=== PATIENT | male | born 1940 | race Caucasian/White ===

== ENCOUNTER → 2023-06-25 11:42 | Outpatient (REF) | payer MEDICARE, BC, SELFPAY | LOC: DHCBC/DCA 11:42 | PROVIDERS: ATTENDING PHYSICIAN Nurse Practitioner; FAMILY PHYSICIAN Family Medicine | DX: R06.09 Other forms of dyspnea (principal) | CPT/HCPCS: 78452; 93017; A9500; J2785 ==

== ENCOUNTER → 2023-08-18 13:02 | Outpatient (REF) | payer MEDICARE, BC, SELFPAY ==
[2023-08-18 13:51] LABS: % Basophils 1.9 % (0-2); % Eosinophils 9.3 % (0-6); % Immature Granulocytes 0.6 % (0-0.5); % Lymphocytes 23.5 % (20.5-51.1); % Monocytes 11.7 % (1.7-9.3); Absolute Basophils 0.1 10^3/uL (0-0.2); Absolute Eosinophils 0.5 10^3/uL (0-0.7); Absolute Lymphocytes 1.2 10^3/uL (1.2-3.4); Absolute Monocytes 0.6 10^3/uL (0.1-0.6); Absolute Neutrophils 2.7 10^3/uL (1.4-6.5); Hematocrit 37.7 % (39.0-52.0); Hemoglobin 12.7 g/dL (13.0-18.0); Mean Corp Hgb Conc. 33.7 g/dL (33.0-37.0); Mean Corpuscular Hgb 30.2 pg (27.0-31.0); Mean Corpuscular Volume 89.8 fL (80.0-94.0); Mean Platelet Volume 9.5 fL (7.4-10.4); Nucleated Red Blood Cells % 0 % (-); Platelet Count 203 10^3/uL (130-400); Red Cell Dist. Width 14.8 % (11.5-14.5); White Blood Cell Count 5.2 10^3/uL (4.8-10.8)
[2023-08-18 14:58] LABS: ALT (SGPT) 29 U/L (0-50); AST (SGOT) 33 U/L (17-59); Albumin 4.4 g/dl (3.5-5.0); Alkaline Phosphatase 92 U/L (38-126); Blood Urea Nitrogen 33 mg/dl (9-20); Calcium 10.5 mg/dl (8.4-10.2); Carbon Dioxide 25 mmol/L (22-30); Chloride 106 mmol/L (98-107); Glucose 90 mg/dl (70-99); Potassium 4.4 mmol/L (3.5-5.1); Sodium 137 mmol/L (135-145); Total Bilirubin 0.9 mg/dl (0.2-1.3); eGFR > 60.00
== END ==
LOC: SDSPAT 13:02
PROVIDERS: ATTENDING PHYSICIAN Internal Medicine Cardiovascular Disease; FAMILY PHYSICIAN Family Medicine
DX: Z01.818 Encounter for other preprocedural examination (principal); I48.0 Paroxysmal atrial fibrillation; R06.09 Other forms of dyspnea; I10 Essential (primary) hypertension
CPT/HCPCS: 36415; 80053; 85025; 86850; 86900; 86901

== ENCOUNTER 2023-08-30 05:51 | Day surgery (SDC) | payer MEDICARE, BC, SELFPAY ==
[2023-08-19 12:56] VITALS: BMI 38.2
[2023-08-30] VITALS (11 sets, daily range): BP systolic 96–153; BP diastolic 70–101; BMI 38.2
[2023-08-30] MEDS: NSS 500 IV (06:42)
[2023-08-30 09:03] LABS: ACT-LR - POC 335 Seconds (116-155)
[2023-08-30 09:24] LABS: ACT-LR - POC 361 Seconds (116-155)
[2023-08-30 09:53] LABS: ACT-LR - POC 316 Seconds (116-155)
--- NOTE | 2023-08-30 10:26 | ITS.CL.ABL ---
Song Writer - Ablation
Ablation
Procedure Report:
AFIB ablation:
Mr. Mak is a very pleasant 83 yr old gentleman with medical history significant for symptomatic atrial flutter and persistent atrial fibrillation on Diltiazem and Eliquis, is here in the EP lab for atrial fibrillation / flutter ablation
Date of Procedure:
08/30/23
Indications:
Symptomatic atrial fibrillation / atrial flutter
Pre-Operative Diagnosis:
Paroxysmal atrial fibrillation / atrial flutter
Post-Operative Diagnosis:
Paroxysmal atrial fibrillation / atrial flutter
Procedure Performed:
Atrial fibrillation ablation with wide area circumferential ablation (WACA) approach for pulmonary vein isolation
Atrial flutter ablation with cavo-tricuspid isthmus line block formation
Performing Physician:
Karthikeyan Watson MD
Assistants:
EP staff
Anesthesia:
See anesthesia records
Detailed Description of the Procedure:
Written informed consent was obtained from the patient after a full explanation of the risks and benefits of the procedure including the risks of sedation and anesthesia.
The patient was brought to the electrophysiology laboratory in stable condition in fasting state. Continuous electrocardiographic and hemodynamic monitoring was initiated.
The initial rhythm was atrial fibrillation.
The procedure site was meticulously prepared with surgical scrub and allowed to dry with no pooling. Sterile draping was applied to cover the procedure site. The image intensifier was draped with sterile bag and positioned over the patient. After
infusion of local anesthetic, vascular access was obtained under ultrasound guidance and sheaths were placed over guide wire as detailed below.
Sheath and Catheter Placement:
In the right femoral vein, an 8-Czech sheath was placed for use during the ablation procedure. A second 9-Fr sheath was placed for use during intracardiac echo procedure. �Another 7 Fr sheath was placed in the right femoral vein for CS placement.
The sheaths were upgraded as needed during the case. Intracardiac catheters were positioned using direct fluoroscopic guidance.� ICE catheter was placed in RA. The following catheters / sheaths were placed
Sheaths:
��������������� Carto Visigo sheath in right femoral vein upgraded from 8Fr in right femoral vein
��������������� 9Fr in right femoral vein
��������������� 7Fr in right femoral vein
Catheters:
������������� [employer] Thermacool STSF bidirectional (D/F) - at locations of HRA, RV, LA and LV.
������������� Pentaray catheter � at locations of RA, CS and LA
������������� ICE catheter - at locations of RA, SVC, and RV.
������������� Bard decapolar catheter at RA and CS locations
Heparin was initiated and infused to maintain appropriate ACT.
Intracardiac ECHO:
An 8-Czech AcuNav intracardiac ECHO (ICE) probe was advanced through the 9-Czech sheath in the femoral vein into the right atrium under fluoroscopic and ICE ultrasound image guidance and a baseline ECHO study was performed. The left atrial size
was enlarged. There was moderate tricuspid regurgitation. The aortic valve was grossly normal. There was normal left ventricular systolic functions. There was trace pericardial effusion. All the veins were identified and good flow noted.
The RA was identified and CTI was imaged. There was Eustachian ridge noted and was imaged throughout the ablation.
During the procedure, ICE was used for monitoring of complications, guidance of trans-septal puncture, monitor the catheter position and tracking ablation lesions. No change in the pericardial space noted throughout the procedure.
Electroanatomic mapping of the right atrium:
A J-tipped guidewire was advanced through the 8-Czech sheath in the right femoral vein into the superior vena cava under fluoroscopic and ICE guidance. The 8-Czech sheath was exchanged for a VIZIGO sheath which was advanced into the superior vena
cava.
There was normal AH and HV noted.
Using the Pentaray catheter advanced through VIZIGO sheath into the right atrium, an electroanatomic map (EAM) of the right atrium was created using [employer] Carto mapping system. The map was used to identify the trans-septal location. It
showed moderately dilated right atrium.
Ablation # 1: Typical Atrial Flutter Ablation:
Patient has a clear history of atrial flutter and as per pre-operative plan. Radiofrequency ablation was performed using a 3.5mm, open irrigation, force-sensing bidirectional ablation catheter ([employer] STSF) in the cavotricuspid isthmus from the
tricuspid annulus to the IVC ridge. �All the ablation lesions were guided by the [facility] SURPOINT module with the CTI lesions were limited to 40-45 tobin for SURPOINT lesion index goal of 450.
Then attention was given to atrial fibrillation ablation.
Trans-septal Puncture:
A J-tipped guidewire was advanced through the dilator of the Vizigo sheath in the right femoral vein into the superior vena cava under fluoroscopic and ICE guidance the sheath was advanced into the SVC. A BRK needle was advanced until the tip was
slightly behind the tip of the dilator inside the Visigo sheath. The apparatus was withdrawn until it was in contact with the fossa ovalis. The position was adjusted based on EAM and ultrasound images from ICE. Under EAM, hemodynamic and ICE
ultrasound guidance, left atrium was cannulated by advancing the needle. Once atrial septum was cannulated, the saline injection was given into the left atrium. The dilator with the needle was withdrawn. Blood was aspirated from the sheath and
arterial blood confirmed. The sheath was flushed. Saline injection noted into the left atrium on ICE. The pressure waveform was checked ad LA pressure measured. The penta-ray catheter was advanced in the sheath into the left pulmonary vein.
The 3-D mapping was done and then the penta-ray was switched to ablation catheter and back to penta-ray as needed.
3D Electroanatomic Mapping - LA:
Using the Pentaray catheter advanced through VIZIGO sheath into the left atrium, an electroanatomic map (EAM) of the left atrium was created using [employer] Carto mapping system. The map was used for localization of catheter position and
tacking of ablation lesions. The EAM of the left atrium showed a 2 left sided veins with 2 right sided veins with all electrically connected to the body the LA. It showed significant scar in the LA in AF that was still present in sinus rhythm. The
LA was dilated in size.
Following the EAM, preparations were made for ablation.
Phrenic nerve stimulation attempt:
The right sided pulmonary veins were identified and the anterior antrum and the deep anterior locations of the PVs were check with high output stimulation 20mA for 4 milliseconds that showed no phrenic nerve capture in any of the potential ablation
areas.
No phrenic nerve capture was noted and the safe areas were marked and a design line was created through the areas of tested antral myocardium for ablation lesions.
Ablation # 2: Pulmonary vein Isolation:
Radiofrequency ablation was performed using an open irrigation, force-sensing 3.5mm radiofrequency ablation catheter ([employer] STSF) by completing the circumferential lesions around the left and right pulmonary veins achieving pulmonary vein
isolation.
All the ablation lesions were guided by the [employer] SURPOINT module with the posterior lesions were limited to 45 tobin for SURPOINT lesion index goal of 400 and anterior wall lesions were limited to SURPOINT index goal of 450.
The esophagus was noted to be on the left side of the LA near the PV antra based on the locations of the esophageal temperature probe as imaged on ICE. Ablation was stopped for any temperature increase of 0.1 degree C. Max esophageal temperature was
36.6C.
EP study and Confirmation of the PVI and bidirectional block:
Following achievement of entrance block at the pulmonary veins, pacing from the pentaray catheter in each of the four veins at 10 milliamps for 2 milliseconds showed entrance and exit block. All PVI were rechecked at the end of the case and remained
isolated with dissociated and local capture with pacing. Entrance and exit block were demonstrated in all veins.
The LA was mapped with Carto EAM in sinus rhythm confirming the line of block at the ablation lesions lines.
The right atrial finding were following.
��������������� -Bidirectional block was confirmed across the CTI line with differential pacing.
��������������� -Double potentials were spaced greater than 92 msec apart.
��������������� -The conduction time across the CTI line from proximal CS pacing was 148 msec.
��������������� -EAM of the right atrium was obtained with coronary sinus pacing and showed a line of block at the CTI.
��������������� -The time interval just lateral to the ablation lesions was 148 msec and the lateral wall was 132 msec
��������������� - All these maneuvers confirmed the block at the CTI line.
- Post ablation HV interval was unchanged at 45msec
EP study:
Sinus Node Function: The sinus node functions are within acceptable normal range.
Arrhythmia Induction:
No sustained arrhythmia was induced at the end of the study.�
Procedure End
ICE study was done again that showed no epicardial accumulation. No complications noted.
Following the completion of the EP study, catheters were removed. Protamine 40 mg was given at the end of the procedure and ACT was checked repeatedly. The sheaths were removed and hemostasis achieved with Vascade and manual compression after
acceptable ACT is achieved.
Left atrial Pressure:
Pre-ablation: Mean LA pressure was 14mmHg
Post-ablation: Mean LA pressure was 15mmHg
Post ablation RA pressure: 11 mmHg
Estimated Blood loss:
<10 cc
Specimens Removed:
None.
Implants / Devices:
None
Urine output:
None
Packs / Drains/ Tubes:
None
Instrument / Sponge Count Correct:
Yes
Complications of the Procedure:
None
Condition of Patient at Time of Transfer:
Hemodynamically stable with no neurological or vascular compromise.
Summary:
Successful atrial fibrillation ablation with circumferential bidirectional line of block at pulmonary vein antra (Pulmonary vein isolation), CTI line formation for typical atrial flutter
--- NOTE | 2023-08-30 14:34 | W.PN.UPDATE ---
Update Note
Progress Note Update
Pt seen post AFlutter ablation. Right groin with vascade closure, no ht/bleeding. OOB ambulating, urinating without difficulty. Post EKG NSR w/1st deg AVB, no acute changes. Resume Eliquis tonight at usual time. Followup at [facility] as scheduled. Home
today if groin site/tele remain stable.
== END 2023-08-30 13:04 | disposition home or self-care (01) ==
LOC: CATH 05:51
PROVIDERS: ATTENDING PHYSICIAN Internal Medicine Cardiovascular Disease; FAMILY PHYSICIAN Family Medicine
DX: I48.19 Other persistent atrial fibrillation (principal); I48.92 Unspecified atrial flutter; I07.1 Rheumatic tricuspid insufficiency; Z79.01 Long term (current) use of anticoagulants
CPT/HCPCS: C1894; C1732; C1892; C1759; C1769; 76937; 85347; 86900; 86901; 93005; 93655; 93656; C1730; C1760

== ENCOUNTER 2023-09-23 07:07 | Day surgery (SDC) | payer MEDICARE, BC, SELFPAY ==
[2023-09-23 07:44] VITALS: BMI 39.6
== END 2023-09-23 09:40 | disposition home or self-care (01) ==
LOC: CATH 07:07
PROVIDERS: ATTENDING PHYSICIAN Internal Medicine; FAMILY PHYSICIAN Family Medicine; OTHER PHYSICIAN Internal Medicine
DX: I48.19 Other persistent atrial fibrillation (principal); R06.09 Other forms of dyspnea; I10 Essential (primary) hypertension; E78.5 Hyperlipidemia, unspecified; I25.10 Atherosclerotic heart disease of native coronary artery without angina pectoris; K21.9 Gastro-esophageal reflux disease without esophagitis; E66.9 Obesity, unspecified; Z68.39 Body mass index [BMI] 39.0-39.9, adult; Z85.820 Personal history of malignant melanoma of skin; Z87.891 Personal history of nicotine dependence
CPT/HCPCS: 92960; 93005

== ENCOUNTER → 2023-11-23 15:22 | Outpatient (REF) | payer MEDICARE, BC, SELFPAY ==
[2023-11-23 17:24] LABS: Blood Urea Nitrogen 35 mg/dl (9-20); Calcium 10.4 mg/dl (8.4-10.2); Carbon Dioxide 23 mmol/L (22-30); Chloride 107 mmol/L (98-107); Glucose 96 mg/dl (70-99); Potassium 4.4 mmol/L (3.5-5.1); Sodium 136 mmol/L (135-145); eGFR 54.51
== END ==
LOC: REG 15:22
PROVIDERS: ATTENDING PHYSICIAN Internal Medicine Cardiovascular Disease; FAMILY PHYSICIAN Family Medicine
DX: Z01.812 Encounter for preprocedural laboratory examination (principal); I25.10 Atherosclerotic heart disease of native coronary artery without angina pectoris; I70.0 Atherosclerosis of aorta; I48.19 Other persistent atrial fibrillation; I10 Essential (primary) hypertension
CPT/HCPCS: 36415; 80048

== ENCOUNTER → 2023-11-30 08:19 | Outpatient (REF) | payer MEDICARE, BC, SELFPAY ==
--- NOTE | 2023-11-26 13:17 | WATCHMAN ---
Watchman
Wathcman Procedure
Referred by:: Walter
Date of Referral:: 11/23/23
[id number] Score
Age in Years (65=0, 65-74=1, >/=75=2): > or = 75
Sex (Female=+1): Male
Congestive Heart Failure History (Yes=+1): No
Hypertension History (Yes=+1): Yes
Stroke/TIA/Thromboembolism History (Yes=+2): No
Vascular Disease History (Yes=+1): Yes
Diabetes Mellitus (Yes=+1): No
Score: 4
Anticoagulation Recommendations: Recommend anticoagulation (as validated in nonvalvular fib)
HASBLED Score
Hypertenstion (uncontrolled >160mmHG systolic): Yes
Renal disease (dialysis, transplant, Cr >2.26mg/dL or >200umol/L): No
Liver disease (cirrhosis or bilirubin >2x normal w/ AST/ALT/AP >3x normal: No
Stroke history: No
Prior major bleeding or predisposition to bleeding: No
Labile INR(unsable/high INRs,time in therapeutic range <60%): No
Age >65: Yes
Medication usage predisposing to bleeding(ASA, NSAIDS): No
Alcohol use (>/= 8 drinks/week): Yes
Score: 3
Risk: Alternatives to anticoagulation should be considered: Patient is at high risk for major bleeding
Electrocardiogram
Interpretation: normal
Heart Rate: 76
Rate: normal
Rhythm: sinus
Physician Visits
Change Person:: Walter
Date of Visit:: 11/23/23
Primary [employer]al Officer Lieutenant:: Ciera
PCP:: Mattie
Plan
Plan:: 11/23/2023: Consult received from Dr. Watson. Script for BMP and CT scan given to patient.
11/24/2023: Labs WNL.
11/26/2023: Called and spoke to patient. CT scan is scheduled for 11/30/2023. Will discuss at heart team meeting on 12/07/2023.
== END ==
LOC: RAD 08:19
PROVIDERS: ATTENDING PHYSICIAN Internal Medicine Cardiovascular Disease; FAMILY PHYSICIAN Family Medicine
DX: I48.19 Other persistent atrial fibrillation (principal)
CPT/HCPCS: 75572; Q9967

== ENCOUNTER 2024-01-25 06:03 | Inpatient (IN) | payer MEDICARE, BC, SELFPAY ==
[2024-01-18 11:56] VITALS: BMI 40.0
[2024-01-18 12:56] LABS: % Basophils 1.3 % (0-2); % Eosinophils 4.4 % (0-6); % Immature Granulocytes 0.5 % (0-0.5); % Lymphocytes 23.2 % (20.5-51.1); % Monocytes 10.9 % (1.7-9.3); % Neutrophils 59.7 % (42.2-75.2); Absolute Basophils 0.1 10^3/uL (0-0.2); Absolute Eosinophils 0.2 10^3/uL (0-0.7); Absolute Lymphocytes 1.3 10^3/uL (1.2-3.4); Absolute Monocytes 0.6 10^3/uL (0.1-0.6); Absolute Neutrophils 3.3 10^3/uL (1.4-6.5); Hematocrit 39.2 % (39.0-52.0); Hemoglobin 13.5 g/dL (13.0-18.0); Mean Corp Hgb Conc. 34.4 g/dL (33.0-37.0); Mean Corpuscular Hgb 33.1 pg (27.0-31.0); Mean Corpuscular Volume 96.1 fL (80.0-94.0); Mean Platelet Volume 9.4 fL (7.4-10.4); Nucleated Red Blood Cells % 0 % (-); Platelet Count 184 10^3/uL (130-400); Red Blood Cell Count 4.08 10^6/uL (4.70-6.10); Red Cell Dist. Width 14.7 % (11.5-14.5); White Blood Cell Count 5.5 10^3/uL (4.8-10.8)
[2024-01-18 13:12] LABS: ALT (SGPT) 32 U/L (0-50); AST (SGOT) 42 U/L (17-59); Albumin 4.6 g/dl (3.5-5.0); Alkaline Phosphatase 93 U/L (38-126); Blood Urea Nitrogen 28 mg/dl (9-20); Calcium 10.3 mg/dl (8.4-10.2); Carbon Dioxide 24 mmol/L (22-30); Chloride 104 mmol/L (98-107); Estimated Creatinine Clearance 64 ml/min; Glucose 95 mg/dl (70-99); Potassium 4.6 mmol/L (3.5-5.1); Sodium 142 mmol/L (135-145); Total Bilirubin 0.6 mg/dl (0.2-1.3); Total Protein 7.1 g/dl (6.3-8.2); eGFR > 60.00
[2024-01-18 13:28] LABS: INR 1.21; PT 15.1 Sec (11.4-14.6)
[2024-01-25] VITALS (13 sets, daily range): BP systolic 119–142; BP diastolic 75–94
[2024-01-25] MEDS: NSS 500 IV (07:07)
[2024-01-25 09:04] LABS: ACT-LR - POC 302 Seconds (116-155)
--- NOTE | 2024-01-25 09:19 | WATCHMAN.MD ---
Watchman Implant
-
Watchman KYA occlusion device implantation:
83 yrs old man with recurrent bleeding and advised to stop anticoagulation therapy is here for Watchman implantation.
Date of Procedure:
01/25/24
Indications:
Recurrent bleeding with anticoagulation therapy for stroke prevention
Pre-Operative Diagnosis:
Atrial fibrillation with recurrent bleeding
Post-Operative Diagnosis:
Atrial fibrillation with recurrent bleeding
Procedure Performed:
Left atrial appendage occlusion with Watchman implantation (35 mm Watchman FLX Pro left atrial appendage closure device)
Performing Physicians:
LUIGI: Neftaly Pack M.D.
Transseptal pill machine operator: Beulah Rivas M.D.
Implanter: Karthikeyan Watson M.D.
Anesthesia:
See anesthesia records
Detailed Description of the Procedure:
Written informed consent was obtained from the patient after a full explanation of the risks and benefits of the procedure including the risks of sedation and anesthesia.
The patient was brought to the electrophysiology laboratory in stable condition in fasting state. Continuous electrocardiographic and hemodynamic monitoring was initiated.
The initial rhythm was normal sinus.
The procedure site was meticulously prepared with surgical scrub and allowed to dry with no pooling. Sterile draping was applied to cover the procedure site. The image intensifier was draped with sterile bag and positioned over the patient. After
infusion of local anesthetic, vascular access was obtained under ultrasound guidance and sheaths were placed over guide wire as detailed below.
Sheath and Catheter Placement:
In the right femoral vein, a 16-Guyanese sheath was placed for Watchman placement procedure.
Sheaths:
��������������� 9Fr with ICE
��������������� Watchman delivery sheath through the 16Fr sheath.
Catheters:
��������������� AccuNav ICE
��������������� Watchman catheter
Intra cardiac ECHO (ICE):
Using AccuNav ICE catheter, ECHO of the cardiac chambers were done that provided the anatomy and a baseline ECHO study was performed. The left atrial size was enlarged. There was trace tricuspid regurgitation. The aortic valve was normal. There was
normal left ventricular size and function. There was no pericardial effusion.
During the procedure, ICE and LUIGI was used for monitoring of complications, guidance of trans-septal puncture, monitor the catheter position and tracking watchman implantation and level of compression.
No change in the pericardial space noted throughout the procedure.
Trans-septal Puncture:
Heparin was initiated and infused to maintain appropriate ACT.
A J-tipped guidewire was advanced through the 8-Guyanese sheath in the right femoral vein into the superior vena cava under fluoroscopic, ICE and LUIGI guidance. The 8Fr was upgraded the Watchman sheath and was advanced into the superior vena cava over
the guide wire. The [employer] AcQCross Qx trans-septal apparatus was used through the Watchman sheath. The apparatus was withdrawn until it was in contact with the fossa ovalis. The position was adjusted based on fluoroscopy and ultrasound images from
ICE. Under fluoroscopic, hemodynamic and ICE/LUIGI ultrasound guidance, left atrium was cannulated by advancing the needle. The right atrial and left atrial pressure was monitored through the needle. A guide wire was placed and was advanced into the
left superior pulmonary vein. Both the sheath and the dilator was advanced into the left atrium. The dilator with the needle was withdrawn. Blood was aspirated from the sheath and arterial blood confirmed. The sheath was flushed. Saline injection
noted into the left atrium on LUIGI. The LA pressure was recorded. The Agilis sheath was removed keeping the wire in place. The Watchman delivery sheath was placed over the guide wire into the LA using a dilator. The dilator and was removed and the
sheath was flushed. The saline injection was noted in the LA on the LUIGI and ICE. A curved pig tail was advanced over the guide wire into the left atrium and the wire was removed.
Left atrial appendage atriography:
The pigtail was advanced into the KYA and was confirmed on fluoroscopy and LUIGI. The contrast was injected and the KYA shape was recorded in FALCON /Caudal view (20/18 degrees). The size of the KYA was again checked and confirmed reviewing the LUIGI and
the fluoroscopy along with previously obtained CT scan images.
Watchman Deployment:
The Watchman delivery sheath was advanced into the KYA over the pigtail till the right marker was at the location of the orifice line marked on the screen. The pigtail was removed and the Watchman delivery system was advanced through the sheath into
the KYA till it was aligned with the outer sheath marker inside the KYA. The watchman sheath was clicked with the outer sheath. Once acceptable location achieved, the outer sheath was pulled back keeping the device steady at the KYA location till a
ball of the device was formed under fluoroscopic guidance. The whole system was advanced further into the KYA till adequate depth is achieved into the KYA.� The KYA occluder was deployed and expanded adequately anchoring to the KYA. The device was
kept anchored with stable pressure to that location for 10 seconds.
The LUIGI image confirmed adequate expansion. The tug test was done that showed the device is anchored well and is not able to come out. The compression was 22% and 28% on the two sides. There was no significant leak noted on the Doppler via LUIGI.
The device was deployed by unscrewing the Watchman device and releasing from the connecting wire. The wire was pulled back into the sheath and the sheath was pulled out of the LA.
Implanted device:
WATCHMAN FLX Pro � 35mm
Procedure End
LUIGI study was done again that showed no epicardial accumulation that was unchanged from earlier. A repeated images showed no change in the pericardial space. No complications noted.
Following the completion of the deployment, catheters were removed. Protamine 40 mg was given at the end of the procedure and ACT was checked repeatedly. The sheath was removed and hemostasis achieved with VASCADE and manual compression after
acceptable ACT is achieved.
Left atrial Pressure:
Mean LA pressure was 19mmHg
Estimated Blood loss:
10 cc
Specimens Removed:
None.
Implants / Devices:
None
Urine output:
None
Packs / Drains/ Tubes:
None
Instrument / Sponge Count Correct:
Yes
Complications of the Procedure:
None
Condition of Patient at Time of Transfer:
Hemodynamically stable with no neurological or vascular compromise.
Summary:
Successful implantation of the left atrial occlusion device (WATCHMAN FLX Pro� 35mm)
Post procedure Plan for anticoagulation:
Continue Eliquis 5 mg BID for 45 days.
Based on 6 weeks LUIGI, will plan to switch Eliquis to Plavix and ASA.
In six months, will plan to discontinue Plavix and continue ASA 81 mg indefinitely.
--- NOTE | 2024-01-25 09:56 | WATCHMAN.MD ---
Watchman Implant
-
ELECTROPHYSIOLOGY/INTERVENTIONAL PROCEDURE REPORT
Date of Procedure: January 25, 2024
Referring: Tony Vang
Assisting Physician: Karthikeyan Watson
PROCEDURES:
1. Left atrial appendage occlusion device using 35mm WATCHMAN FLX device
2. Intracardiac echocardiography
3. Ultrasound-guided right common femoral venous access
INDICATION: Atrial fibrillation warranting long-term anticoagulation with bleeding complication history
ACCESS: Right common femoral vein, 16Fr sheath and 9Fr. sheaths, under US guidance using micropunture kit.
HEMODYNAMICS : (mmHg)
LA Pressure: 12
PROCEDURE REPORT:
After informed consent and patient safety 'Timeout' the patient was intubated and sedated by the anesthesiology service. Under ultrasound guidance, the right femoral vein was accessed by Dr. Karthikeyan Watson twice for transseptal puncture and
intracardiac ultrasound, respectively. Concomitant transesophageal echocardiogram was performed by Dr. Neftaly Pack
Baseline intracardiac ultrasound demonstrated no pericardial effusion and baseline LUIGI images revealed a trace pericardial effusion.
After ruling out a left atrial appendage thrombus, the patient was heparinized for an ACT between 350-400 seconds and under LUIGI and intracardiac ultrasound guidance transseptal puncture was performed by Dr. Beulah Rivas using an [employer] system in
a inferior position on the inferior-superior axis and a mid position on the anterior-posterior axis. Left atrial pressure was 12 millimeters mercury.
Once transseptal puncture was performed over an Amplatz Super Stiff 0.035 wire parked in the left superior pulmonary vein, the watchman access double curve sheath was advanced over the wire. A 5 Hungarian pigtail catheter was placed into the left
atrial appendage and an appendage gram was performed using intravenous contrast dye demonstrating a chicken type anatomy that was suitable likely for a 35 mm WATCHMAN FLX device.
After appropriately prepping the device, Dr. Karthikeyan Watson successfully deployed a 35 mm WATCHMAN FLX device. Device showed excellent positioning with no leaks post device deployment. 22 to 28% compression was noted in the device after deployment. A
'tug-test' was performed demonstrating stability of the device. Given PASS criteria were met, the device was then released successfully by Dr. Karthikeyan Watson.
Post procedure, LUIGI imaging demonstrated no new or worse pericardial effusion. Sheaths and catheters were removed from the left atrium and heparin was reversed using protamine. Catheters removed from the femoral veins with site closed using Vascade
MVP devices with successful hemostasis. The patient tolerated the procedure well.
RADIATION SUMMARY: Fluoro Time (min): 10.1, Dose (mGy): 111.72, DAP (Gy.cm2) : 32.5
Closure Device: Vascade over bilateral venous access sites on right groin
CONCLUSIONS
1. Successful deployment of 35 mm WATCHMAN FLX device under LUIGI and ICE guidance.
RECOMMENDATIONS
1. Plan for daily Eliquis 5 mg twice daily for the next 6 weeks.
2. 45-day LUIGI post procedure to assess stability of device and rule out any raul-device leaks. If no concerns, switch Eliquis to dual antiplatelet therapy with daily baby aspirin and Plavix 75 mg.
3. Bedrest per protocol post Vascade devices.
Copy to: Karthikeyan Diego
Beulah Rivas MD, [facility], [facility]
[2024-01-25] MEDS: TYLENOL 650 MG PO (09:58)
[2024-01-25] MEDS: ALTACE 10 MG PO (09:59)
[2024-01-25] MEDS: CARDIZEM CD 240 MG PO (10:00)
--- NOTE | 2024-01-25 12:58 | W.DS.TRANS ---
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
-
Discharge Instructions:
Discharge Diagnosis/Procedures AFib, s/p watchman implant
Diet Low Cholesterol
Driving Restrictions No driving for 24 hours
Others Tests Follow up LUIGI is scheduled for 03/15/2024 at
[facility]. You will receive a call
from Dr. Watson's office with instructions.
Instructions:
Stand-Alone Forms: DC Instructions- Cath/EP Lab
Changes to Home Medications: No
Discharge Medications:
DC Medications w/original date entered in [employer] water systems
Multi Collagen 1 dose PO DAILY Knee supplement 08/30/23
apixaban 5 mg tablet (Eliquis) 5 mg PO BID 08/30/23
cholecalciferol (vitamin D3) 25 mcg (1,000 unit) tablet (Vitamin D3) 25 mcg PO DAILY 08/30/23
diltiazem HCl 240 mg tablet,extended release 24 hr 240 mg PO DAILY 08/30/23
esomeprazole magnesium 20 mg capsule,delayed release (Nexium) 20 mg PO DAILY 08/30/23
ezetimibe 10 mg tablet 10 mg PO DAILY 08/30/23
hydrochlorothiazide 12.5 mg tablet 12.5 mg PO DAILY 08/30/23
dkncslbj-ocd-LO 0.4 mg-calcium 162 mg-iron 18 md-fbluyso-gtkpyb tablet 1 tab PO DAILY 08/30/23
naproxen sodium 220 mg tablet (Aleve) 440 mg PO BID PRN knee pain 08/30/23
pitavastatin calcium 4 mg tablet (Livalo) 4 mg PO DAILY 08/30/23
ramipril 10 mg capsule 10 mg PO BID 08/30/23
Prevagen 1 tab PO DAILY memory 01/25/24
Home Medication Changes
Pending Results: No
--- NOTE | 2024-01-25 12:58 | W.PN.UPDATE ---
Update Note
Progress Note Update
83 yo WM s/p Watchman device (same day). He denies, cp, sob, lisa diet, voiding, amb w/o dizziness, EKG SR, occ PAC's, R fem site c/d/i no HT soft. He will continue OAC Eliquis 5mg bid. He will have LUIGI in 45 days. Activity restrictions reviewed. He
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 He is for d/c home after 1pm.
== END 2024-01-25 13:01 | disposition home or self-care (01) | DRG 274 ==
LOC: CATH-IN 06:03
PROVIDERS: Internal Medicine; ADMITTING PHYSICIAN Internal Medicine Cardiovascular Disease; FAMILY PHYSICIAN Family Medicine
PROC: B24BZZ4 Ultrasonography of Heart with Aorta, Transesophageal (ICD-10-PCS; 2024-01-25)
PROC: 02L73DK Occlusion of Left Atrial Appendage with Intraluminal Device, Percutaneous Approach (ICD-10-PCS; 2024-01-25)
DX: I48.0 Paroxysmal atrial fibrillation (principal); Z68.41 Body mass index [BMI] 40.0-44.9, adult; E66.01 Morbid (severe) obesity due to excess calories; I12.9 Hypertensive chronic kidney disease with stage 1 through stage 4 chronic kidney disease, or unspecified chronic kidney disease; N18.30 Chronic kidney disease, stage 3 unspecified; I48.92 Unspecified atrial flutter; I25.10 Atherosclerotic heart disease of native coronary artery without angina pectoris; E78.5 Hyperlipidemia, unspecified; Z79.01 Long term (current) use of anticoagulants
CPT/HCPCS: 36415; 80053; 85025; 85610; 86850; 86900; 86901; 93005; 93355

== ENCOUNTER → 2024-03-15 08:56 | Day surgery (SDC) | payer MEDICARE, BC, SELFPAY | LOC: CATH 08:56 | PROVIDERS: ATTENDING PHYSICIAN Internal Medicine; FAMILY PHYSICIAN Family Medicine; OTHER PHYSICIAN Internal Medicine | DX: Z45.09 Encounter for adjustment and management of other cardiac device (principal); I08.1 Rheumatic disorders of both mitral and tricuspid valves; I48.19 Other persistent atrial fibrillation; I25.10 Atherosclerotic heart disease of native coronary artery without angina pectoris; I12.9 Hypertensive chronic kidney disease with stage 1 through stage 4 chronic kidney disease, or unspecified chronic kidney disease; N18.30 Chronic kidney disease, stage 3 unspecified; E78.5 Hyperlipidemia, unspecified; K21.9 Gastro-esophageal reflux disease without esophagitis; E66.9 Obesity, unspecified; Z68.41 Body mass index [BMI] 40.0-44.9, adult; Z87.891 Personal history of nicotine dependence; Z79.01 Long term (current) use of anticoagulants | CPT/HCPCS: 93312; 93320; 93325 ==

== ENCOUNTER → 2024-04-04 14:47 | Outpatient (REF) | payer MEDICARE, BC, SELFPAY | LOC: RAD 14:47 | PROVIDERS: ATTENDING PHYSICIAN Registered Nurse | DX: R06.02 Shortness of breath (principal) | CPT/HCPCS: 71046 ==